=== PATIENT | male | born 1955 | race Caucasian/White ===

== ENCOUNTER 2019-07-04 09:02 | Observation (INO) | payer BC ==
[~2019-07-04] VITALS: Ht 185.4 cm; Wt 109.1 kg
[2019-07-04 09:40] LABS: BASOPHILS % (AUTO) 0.8 % (0-1); EOSINOPHILS # (AUTO) 0.1 X10'3 (0-0.9); HEMATOCRIT 49.1 % (42.0-52.0); HEMOGLOBIN 16.7 g/dl (14.0-17.9); LYMPHOCYTES # (AUTO) 1.6 X10'3 (1.1-4.8); LYMPHOCYTES % (AUTO) 31.1 % (21-51); MEAN CORPUSCULAR HEMOGLOBIN 27.8 PG (27.0-31.0); MEAN CORPUSCULAR VOLUME 81.7 FL (78-98); MEAN PLATELET VOLUME 8.2 FL (7.4-10.4); MONOCYTES # (AUTO) 0.5 X10'3 (0-0.9); MONOCYTES % (AUTO) 9.2 % (2-12); NEUTROPHILS % (AUTO) 56.9 % (42-75); PLATELET COUNT 259 X10'3 (140-440); RED BLOOD COUNT 6.01 X10'6 (4.70-6.10); RED CELL DISTRIBUTION WIDTH 14.4 % (11.5-14.5); WHITE BLOOD COUNT 5.3 X10'3 (4.5-11.0)
[2019-07-04 09:50] LABS: ALANINE AMINOTRANSFERASE 49 U/L (12-78); ALBUMIN 4.2 G/DL (3.4-5.0); ALBUMIN/GLOBULIN RATIO 1.1 (1.1-1.5); ALKALINE PHOSPHATASE 73 IU/L (46-116); ANION GAP 8 (8-16); ASPARTATE AMINO TRANSFERASE 28 U/L (10-37); BILIRUBIN,TOTAL 0.7 MG/DL (0.1-1.0); BLOOD UREA NITROGEN 15 MG/DL (7-18); BUN/CREATININE RATIO 15.8 (5.4-32.0); CALCIUM 8.9 MG/DL (8.5-10.1); CHLORIDE 106 MMOL/L (99-107); CREATININE 0.95 MG/DL (0.60-1.10); GLUCOSE 108 MG/DL (70-104); POTASSIUM 4.5 MMOL/L (3.5-5.1); SODIUM 143 MMOL/L (135-145); TOTAL CARBON DIOXIDE 28.6 MMOL/L (24-32); eGFR 80 ML/MIN
[2019-07-04] MEDS ORDERED: nitroGLYCERIN 0.4mg SUBLingual tab SL PRN ×2 (11:30→15:10)
--- NOTE | 2019-07-04 11:43 | NUR ---
INFORMED NURSE THAT PATIENT WAS [employer] AND WAS TAKEN OFF BY HIS [employer] HELPER LAST FRIDAY. ER MD INFORMED OF THIS FACT.
[2019-07-04] MEDS ORDERED: magnesium Cl slow-release 64mg tablet PO PRN (14:20)
[2019-07-04] MEDS ORDERED: ondansetron/PF 4mg/2ml inj IV PRN (14:20)
[2019-07-04] MEDS ORDERED: magnesium hydroxide 30ml (MOM) UD suspension PO PRN (14:20)
[2019-07-04] MEDS ORDERED: potassium Cl 20 mEq SR tablet PO PRN ×2 (14:20)
[2019-07-04] MEDS ORDERED: acetaminophen 325mg tablet PO PRN (14:20)
[2019-07-04] MEDS ORDERED: mag hydrox/Alum hydrox/simeth 30ml oral suspension PO PRN (14:20)
[2019-07-04] MEDS ORDERED: magnesium 4gm in 100ml NS 100 ML IV PRN (14:20)
[2019-07-04] MEDS ORDERED: potassium CL 10mEq/100ml bag 100 ML IV PRN ×2 (14:20)
[2019-07-04] MEDS ORDERED: magnesium 2GM in 50ml NS 50 ML IV PRN (14:20)
[2019-07-04] MEDS ORDERED: LANS30CA56 PO (14:58)
[2019-07-04] MEDS ORDERED: GABA-532 PO (14:58)
[2019-07-04] MEDS ORDERED: BACL20TA PO (14:58)
[2019-07-04] MEDS ORDERED: LEVO175T2 PO (14:58)
[2019-07-04] MEDS ORDERED: HYDR-4353 PO (14:58)
[2019-07-04] MEDS ORDERED: metoprolol tartrate 1mg/ml inj IV PRN (15:10)
[2019-07-04] MEDS ORDERED: regadenoson 0.4mg/5ml syringe IV PRN (15:10)
[2019-07-04] MEDS ORDERED: aminophylline 250mg/10ml inj. IV PRN (15:10)
[2019-07-04] MEDS ORDERED: iohexol 350MG/ML 100ml bottle IV ONE (15:22)
--- NOTE | 2019-07-04 15:40 | NUR ---
ATTEMPTED TO CALL REPORT TO JAYMIE FOX. NURSE DOMINIQUE WAS INTERRUPTED DURING THE REPORT AND WILL BE CALLING BACK TO THIS ER NURSE TO GET ADEQUATE INFORMATION FOR TRANSFER TO ROOM.
--- NOTE | 2019-07-04 15:55 | NUR ---
1535 Receiving pt report from Marivel COON in ER. This RN called away to tend to a pt problem. Called back Marivel COON at 1555 to continue receiving report. I had the opportunity to ask questions.
--- NOTE | 2019-07-04 16:15 | NUR ---
Pt arrived to [facility] via [facility], accompanied by family. Pt oriented to room and POC. Tele placed. PIV RAC flushed/patent.
[2019-07-04 16:30] VITALS: BP 113/75
--- NOTE | 2019-07-04 19:06 | NUR ---
Patient in room [facility]. I have received report from Rhonda COON and had the opportunity to ask questions and assume patient care.
[2019-07-04 20:00] VITALS: BP 106/64
[2019-07-04] MEDS: K and/or MAG REPLACEMENT MC SCH (20:00)
[2019-07-05] VITALS: BP 105/63
[2019-07-05 05:46] LABS: ALANINE AMINOTRANSFERASE 41 U/L (12-78); ALBUMIN 3.5 G/DL (3.4-5.0); ALBUMIN/GLOBULIN RATIO 1.2 (1.1-1.5); ALKALINE PHOSPHATASE 62 IU/L (46-116); ANION GAP 6 (8-16); ASPARTATE AMINO TRANSFERASE 23 U/L (10-37); BILIRUBIN,TOTAL 0.6 MG/DL (0.1-1.0); BLOOD UREA NITROGEN 14 MG/DL (7-18); BUN/CREATININE RATIO 12.7 (5.4-32.0); CALCIUM 8.1 MG/DL (8.5-10.1); CHLORIDE 106 MMOL/L (99-107); CHOL/HDL RATIO 4.7 (0.00-4.99); CHOLESTEROL 163 MG/DL (0-200); GLUCOSE 107 MG/DL (70-104); HDL CHOLESTEROL 35 MG/DL (35-60); LDL CHOLESTEROL 115 MG/DL (50-100); POTASSIUM 4.2 MMOL/L (3.5-5.1); SODIUM 142 MMOL/L (135-145); TOTAL CARBON DIOXIDE 29.8 MMOL/L (24-32); TOTAL PROTEIN 6.5 G/DL (6.4-8.2); TRIGLYCERIDES 94 MG/DL (20-135); eGFR 68 ML/MIN
[2019-07-05 06:06] LABS: BASOPHILS % (AUTO) 0.5 % (0-1); EOSINOPHILS # (AUTO) 0.1 X10'3 (0-0.9); EOSINOPHILS % (AUTO) 2.2 % (0-6); HEMATOCRIT 45.5 % (42.0-52.0); HEMOGLOBIN 15.4 g/dl (14.0-17.9); LYMPHOCYTES # (AUTO) 1.8 X10'3 (1.1-4.8); LYMPHOCYTES % (AUTO) 30.5 % (21-51); MEAN CORPUSCULAR HEMOGLOBIN 27.6 PG (27.0-31.0); MEAN CORPUSCULAR HGB CONC 33.9 g/dL (33.0-36.5); MEAN CORPUSCULAR VOLUME 81.6 FL (78-98); MEAN PLATELET VOLUME 8.4 FL (7.4-10.4); MONOCYTES # (AUTO) 0.5 X10'3 (0-0.9); MONOCYTES % (AUTO) 9.4 % (2-12); NEUTROPHILS # (AUTO) 3.3 X10'3 (1.8-7.7); NEUTROPHILS % (AUTO) 57.4 % (42-75); PLATELET COUNT 233 X10'3 (140-440); RED BLOOD COUNT 5.58 X10'6 (4.70-6.10); RED CELL DISTRIBUTION WIDTH 13.9 % (11.5-14.5); WHITE BLOOD COUNT 5.8 X10'3 (4.5-11.0)
--- NOTE | 2019-07-05 06:25 | NUR ---
Patient in room [facility]. I have received report from JAYMIE Trinh and had the opportunity to ask questions and assume patient care.
[2019-07-05 06:30] VITALS: BP 109/71
--- NOTE | 2019-07-05 06:43 | NUR ---
Problems reprioritized. Patient report given, questions answered & plan of care reviewed with Tereza RN.
[2019-07-05] MEDS: K and/or MAG REPLACEMENT MC SCH (06:58)
[2019-07-05] MEDS ORDERED: enoxaparin 40mg/0.4ml syringe SQ SCH (08:00)
[2019-07-05] MEDS ORDERED: HYDROcodone/acetaminophen 10/325mg tab PO PRN (08:05)
[2019-07-05] MEDS ORDERED: LEVO200T8 PO (08:11)
[2019-07-05] MEDS ORDERED: levoTHYROXINE 100mcg tablet PO SCH (09:15)
[2019-07-05] MEDS ORDERED: pneumococcal 23-VAL P-sac vacc 25 mcg/0.5ml vial IMVAC ONE (10:00)
[2019-07-05 11:00] VITALS: BP 140/85
[2019-07-05] MEDS ORDERED: baclofen 10mg tablet PO PRN (13:00)
[2019-07-05] MEDS ORDERED: gabapentin 300mg capsule PO SCH (13:00)
--- NOTE | 2019-07-05 15:50 | NUR ---
DC inst provided to pt. IV DC'd, tip intact. All belongings sent w/pt. Pt ambulated to front lobby.
[2019-07-06] MEDS ORDERED: pantoprazole 40mg Tablet.DR PO SCH (07:30)
[2019-07-06] MEDS ORDERED: levoTHYROXINE 100mcg tablet PO SCH (08:00)
== END 2019-07-05 15:50 | disposition home or self-care (01) ==
LOC: ER 09:02 → ED HOLD 14:18 → SUR 3N 16:24 → CMPBEDREQ 07-05 12:51
PROVIDERS: ADMIT Family Medicine; ATTEND Family Medicine
DX: I21.9 Acute myocardial infarction, unspecified (principal); E03.9 Hypothyroidism, unspecified; I82.502 Chronic embolism and thrombosis of unspecified deep veins of left lower extremity; Z23 Encounter for immunization; Z85.850 Personal history of malignant neoplasm of thyroid; Z90.89 Acquired absence of other organs; Z79.01 Long term (current) use of anticoagulants; Z79.899 Other long term (current) drug therapy; Z88.2 Allergy status to sulfonamides
CPT/HCPCS: 36415; 71045; 71275; 80053; 80061; 83735; 84443; 84484; 85025; 87081; 90471; 90732; 93005; 93306; 96372; 99285; G0378; Q9967; J1650

== ENCOUNTER 2023-09-01 19:34 | Emergency (ER) | payer MEDICARE, BC ==
[~2023-09-01] VITALS: Ht 185.4 cm; Wt 101.9 kg
[~2023-09-01 19:34] MED LIST: BACL20TA PO; GABA-532 PO; HYDR-4353 PO; LANS30CA56 PO; LEVO200T8 PO
[2023-09-01 20:04] LABS: BASOPHILS # (AUTO) 0.1 X10'3 (0-0.2); BASOPHILS % (AUTO) 1.4 % (0-1); EOSINOPHILS # (AUTO) 0.2 X10'3 (0-0.9); EOSINOPHILS % (AUTO) 2.1 % (0-6); HEMATOCRIT 44.2 % (42.0-52.0); HEMOGLOBIN 15.1 g/dl (14.0-17.9); LYMPHOCYTES # (AUTO) 1.7 X10'3 (1.1-4.8); MEAN CORPUSCULAR HEMOGLOBIN 28.4 PG (27.0-31.0); MEAN CORPUSCULAR HGB CONC 34.1 g/dL (33.0-36.5); MEAN CORPUSCULAR VOLUME 83.5 FL (78-98); MEAN PLATELET VOLUME 7.8 FL (7.4-10.4); MONOCYTES # (AUTO) 0.6 X10'3 (0-0.9); MONOCYTES % (AUTO) 8.1 % (2-12); NEUTROPHILS % (AUTO) 65.4 % (42-75); PLATELET COUNT 268 X10'3 (140-440); RED CELL DISTRIBUTION WIDTH 14.5 % (11.5-14.5); WHITE BLOOD COUNT 7.6 X10'3 (4.5-11.0)
[2023-09-01 20:15] VITALS: PULSE 73
[2023-09-01 20:19] LABS: ALANINE AMINOTRANSFERASE 28 U/L (12-78); ALBUMIN 3.7 G/DL (3.4-5.0); ALKALINE PHOSPHATASE 75 IU/L (46-116); ANION GAP 8 (8-16); ASPARTATE AMINO TRANSFERASE 6 U/L (10-37); BILIRUBIN,TOTAL 0.4 MG/DL (0.1-1.0); BLOOD UREA NITROGEN 14 MG/DL (7-18); BUN/CREATININE RATIO 14.4 (10.0-20.0); C-REACTIVE PROTEIN 0.32 MG/DL (0.0-0.5); CALCIUM 8.3 MG/DL (8.5-10.1); CHLORIDE 108 MMOL/L (99-107); CREATININE 0.97 MG/DL (0.60-1.10); GLUCOSE 105 MG/DL (70-104); SODIUM 144 MMOL/L (135-145); TOTAL CARBON DIOXIDE 28.4 MMOL/L (24-32); TOTAL PROTEIN 7.4 G/DL (6.4-8.2); eCRCL 82 ML/MIN; eGFR 77 ML/MIN
[2023-09-01] MEDS ORDERED: APIX5TAB3 PO (21:14)
[2023-09-01] MEDS ORDERED: apixaban 5mg tablet PO SCH (21:15)
[2023-09-01] MEDS: apixaban 5mg tablet PO ONE (21:39)
[2023-09-01 21:42] VITALS: BP 115/65; RESP 16; TEMP 98.4; O2SAT 98
== END 2023-09-01 21:43 | disposition home or self-care (01) ==
LOC: ER 19:35
DX: I82.812 Embolism and thrombosis of superficial veins of left lower extremity (principal); Z88.8 Allergy status to other drugs, medicaments and biological substances; Z79.899 Other long term (current) drug therapy
CPT/HCPCS: 36415; 80053; 85025; 85651; 86140; 93971; 99284